=== PATIENT | female | born 1950 | race Caucasian/White ===

== ENCOUNTER → 2023-11-06 14:48 | Outpatient (REF) | payer MEDICARE, BC, SELFPAY | LOC: HWRCS 14:48 | PROVIDERS: ATTENDING PHYSICIAN Internal Medicine Cardiovascular Disease; FAMILY PHYSICIAN Family Medicine | DX: Z01.810 Encounter for preprocedural cardiovascular examination (principal); I42.8 Other cardiomyopathies; I42.1 Obstructive hypertrophic cardiomyopathy; Z95.810 Presence of automatic (implantable) cardiac defibrillator; I48.0 Paroxysmal atrial fibrillation | CPT/HCPCS: 93306 ==

== ENCOUNTER → 2024-10-17 12:37 | Outpatient (REF) | payer OTHER, SELFPAY | LOC: HWRAD 12:37 | PROVIDERS: ATTENDING PHYSICIAN Internal Medicine Cardiovascular Disease; FAMILY PHYSICIAN Family Medicine | DX: I42.8 Other cardiomyopathies (principal); I48.0 Paroxysmal atrial fibrillation; Z01.810 Encounter for preprocedural cardiovascular examination; E78.2 Mixed hyperlipidemia; I77.810 Thoracic aortic ectasia; H53.8 Other visual disturbances | CPT/HCPCS: 93880 ==